=== PATIENT | female | born 2000 | race Caucasian/White ===

== ENCOUNTER → 2023-07-21 | Outpatient (CLI) | payer OTHER ==
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
== END ==
LOC: RAD 11:28
PROVIDERS: ATTEND Registered Nurse Critical Care Medicine
DX: Z04.2 Encounter for examination and observation following work accident (principal); R10.31 Right lower quadrant pain; R10.32 Left lower quadrant pain; V49.40XA Driver injured in collision with unspecified motor vehicles in traffic accident, initial encounter
CPT/HCPCS: 74176